=== PATIENT | female | born 1940 | race Hispanic/Latino ===

== ENCOUNTER 2019-01-16 09:27 | Outpatient (CLI) | payer MEDICARE ==
--- NOTE | 2019-01-16 10:43 | XRay Report ---
XRAY LEFT HIP THREE VIEWS: 01/16/19 09:27:00 CLINICAL: Acute left hip pain. FINDINGS: No fracture or dislocation. Mild arthritis of both hips. Normal soft tissues. Right SI joint sclerosis with no erosions. Lesser left SI joint sclerosis with no erosions. The pelvic bones are otherwise intact. No enthesophytes. Normal soft tissues. IMPRESSION: Mild arthritis of the hips and bilateral sacroiliitis, right worse than left.
== END 2019-01-16 09:28 | disposition home or self-care (01) ==
LOC: SPVIMAG 09:27
PROVIDERS: ATTEND Internal Medicine
DX: M16.0 Bilateral primary osteoarthritis of hip (principal); M46.1 Sacroiliitis, not elsewhere classified

== ENCOUNTER 2019-05-02 08:41 | Outpatient (CLI) | payer MEDICARE ==
--- NOTE | 2019-05-02 10:56 | XRay Report ---
XRAY CHEST TWO VIEWS: 05/02/19 08:41:00 CLINICAL: Cough. COMPARISON: None FINDINGS: The heart is normal size. Pacer leads in the heart. Normal pulmonary vessels. Mild left basal patchy opacities on the frontal view and abnormal lingular opacities on the lateral view.. No pulmonary consolidation. No pleural effusion.Osteopenia and mild chronic wedge compression fractures of the mid thoracic spine. Mild degenerative change in the thoracic spine. IMPRESSION: Suspect mild lingular pneumonia.
--- NOTE | 2019-05-02 10:56 | XRay Report ---
X-RAY SINUSES 3+ VIEWS: 05/02/19 CLINICAL: Acute maxillary sinusitis. FINDINGS: Normal aeration of bilateral frontal, ethmoid, maxillary and sphenoid sinuses. No air-fluid levels. No mass or polyp. The nasal septum is midline. The bones and soft tissues are normal. IMPRESSION: Normal sinuses.
== END 2019-05-02 08:42 | disposition home or self-care (01) ==
LOC: SPVIMAG 08:41
PROVIDERS: ATTEND Internal Medicine
DX: S22.000A Wedge compression fracture of unspecified thoracic vertebra, initial encounter for closed fracture (principal); M47.814 Spondylosis without myelopathy or radiculopathy, thoracic region; M85.88 Other specified disorders of bone density and structure, other site; J01.00 Acute maxillary sinusitis, unspecified; J20.8 Acute bronchitis due to other specified organisms; X58.XXXA Exposure to other specified factors, initial encounter; Y93.89 Activity, other specified; Y92.89 Other specified places as the place of occurrence of the external cause; Y99.8 Other external cause status
CPT/HCPCS: 70220; 71046

== ENCOUNTER 2019-06-20 09:35 | Outpatient (CLI) | payer MEDICARE ==
--- NOTE | 2019-06-20 13:46 | XRay Report ---
CHEST 2 VIEWS INDICATION: LINGULAR PNEUMONIA. COMPARISON: 05/02/2019 FINDINGS: Support devices: 2-lead pacemaker device remains in the same position. Heart: Within normal limits. Lungs/pleura: Mild emphysematous changes are suspected bilaterally. No evidence for infiltrate or ple ural fluid. No pneumothorax. Additional findings: None. IMPRESSION: Mild emphysematous changes. Lungs clear. Signer Name: Anthony Sosa Jr, MD Signed: 06/20/2019 1:42 PM Workstation Name: [id number]
== END 2019-06-20 09:36 | disposition home or self-care (01) ==
LOC: SPVIMAG 09:35
PROVIDERS: ATTEND Internal Medicine
DX: J43.9 Emphysema, unspecified (principal)
CPT/HCPCS: 71046

== ENCOUNTER 2020-01-30 10:59 | Outpatient (CLI) | payer MEDICARE ==
--- NOTE | 2020-01-30 12:56 | XRay Report ---
CHEST 2 VIEWS INDICATION / CLINICAL INFORMATION: ACUTE BRONCHITIS, BACTERIAL. COMPARISON: 06/20/2019 FINDINGS: SUPPORT DEVICES: None. HEART / MEDIASTINUM: No significant abnormality. LUNGS / PLEURA: No significant pulmonary or pleural abnormality. .No pneumothorax. There is calcifica tion noted in the costal cartilage ADDITIONAL FINDINGS: No significant additional findings. IMPRESSION: 1. No acute findings. Signer Name: Dat Degroot MD Signed: 01/30/2020 12:51 PM Workstation Name: [id number]
== END 2020-01-30 11:00 | disposition home or self-care (01) ==
LOC: SPVIMAG 10:59
PROVIDERS: ATTEND Internal Medicine
DX: J20.8 Acute bronchitis due to other specified organisms (principal)
CPT/HCPCS: 71046

== ENCOUNTER 2020-12-12 09:53 | Outpatient (CLI) | payer MEDICARE ==
--- NOTE | 2020-12-12 11:53 | XRay Report ---
CHEST 2 VIEWS INDICATION / CLINICAL INFORMATION: COUGH R05. COMPARISON: 01/30/2020 FINDINGS: SUPPORT DEVICES: Left-sided pacemaker HEART / MEDIASTINUM: No significant abnormality. LUNGS / PLEURA: No significant pulmonary or pleural abnormality. No pneumothorax. ADDITIONAL FINDINGS: No significant additional findings. IMPRESSION: No significant abnormality or interval change from 01/30/2020 Signer Name: Julio Balbuena MD FACR Signed: 12/12/2020 11:49 AM Workstation Name: [email or web address] [id number]
== END 2020-12-12 09:54 | disposition home or self-care (01) ==
LOC: SPVWC 09:53
PROVIDERS: ATTEND Internal Medicine
DX: R05 Cough (principal)
CPT/HCPCS: 71046